=== PATIENT | male | born 1970 | race Caucasian/White ===

== ENCOUNTER 2022-10-29 15:14 | Emergency (ER) | payer OTHER, SELFPAY ==
[2022-10-29 15:31] VITALS: BP 133/79; PULSE 95; RESP 16; TEMP 36.5; O2SAT 96; BMI 28.6
--- NOTE | 2022-10-29 15:43 | CRLHL7_ITS ---
For Patients: As a result of the Century Cures Act, medical imaging exams and procedure reports are released immediately into your electronic medical record. You may view this report before your referring provider. If you have questions, please contact your health care provider. INDICATION: Left-sided abdomen and back pain, suspected kidney stone. TECHNIQUE: CT abdomen and pelvis without contrast. COMPARISON: None. FINDINGS: Lower chest: Unremarkable. Liver: Normal in size and attenuation. No suspicious masses. Gallbladder and bile ducts: No stones or inflammation. No biliary dilatation. Pancreas: Unremarkable. No mass or inflammation. Spleen: Normal in size. No masses. Adrenal glands: Normal in size. No nodules. Kidneys: Relatively large 9 x 7 mm stone at the left ureteropelvic junction causing moderate hydronephrosis. A 2nd smaller stones in the left kidney. No right-sided stones. GI tract: Unremarkable. Normal in caliber. No sign of mass or inflammation. Normal appendix. Vasculature: Abdominal aorta is normal in caliber. Lymph nodes: No lymphadenopathy. Peritoneum/Abdominal Wall: Unremarkable. No sign of mass or infiltration. No free air or significant free fluid. Pelvis: Unremarkable. No pelvic masses. 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 IMPRESSION: Large 9 x 7 mm stone at the left UPJ causing moderate hydronephrosis. Please note that all CT scans at this facility use dose modulation, iterative reconstruction, and/or weight-based dosing when appropriate to reduce radiation dose to as low as reasonably achievable. Dictated by James Freed MD @ 10/29/2022 5:11:55 PM (Electronically Signed)
[2022-10-29 15:57] LABS: Appearance Urine Slightly Cloudy (Clear); Bilirubin Urine Negative (Negative); Blood Urine 2+ (Negative); Color Urine Yellow (Yellow); Glucose Urine Negative (Negative); Ketones Urine 1+ (Negative); Leukocyte Esterase Urine 1+ (Negative); Nitrite Urine Negative (Negative); Protein Urine Negative (Negative); Specific Gravity Urine 1.015 (1.000-1.030); Urobilinogen Urine 0.2 (0.2-1.0)
[2022-10-29 16:01] LABS: Basophils Absolute Auto 0.02 K/uL (0.00-0.30); Basophils Percent Auto 0.3 % (0.0-3.0); Eosinophils Absolute Auto 0.02 K/uL (0.00-0.50); Eosinophils Percent Auto 0.3 % (0.0-7.0); Hematocrit 43.1 % (37.0-53.0); Hemoglobin* 15.2 gm/dL (13.5-17.5); Immature Granulocytes Abs Auto 0.02 K/uL (0.00-0.30); Immature Granulocytes Pct Auto 0.3 %; Lymphocytes Percent Auto 16.8 % (20-44); Mean Corpuscular HGB Conc 35 gm/dL (32-36); Mean Corpuscular Hemoglobin 31 pg (26-34); Mean Corpuscular Volume 88 fL (80-100); Monocytes Percent Auto 4.7 % (0.0-11.0); Neutrophils Percent Auto 77.6 % (42.0-72.0); Platelet Count* 193 K/uL (140-440); RDW Coefficient of Variation % 11.9 % (11.5-15.5); Red Blood Count 4.88 m/uL (4.30-5.90); White Blood Count* 7.51 K/uL (4.50-11.00)
[2022-10-29] MEDS: 0.9 % SODIUM CHLORIDE 1000 ml 1,000 ML IV (16:03)
[2022-10-29] MEDS: KETOROLAC 30 MG/ML inj IVP (16:03)
[2022-10-29 16:08] LABS: Slide Review Reflex No
[2022-10-29 16:10] LABS: Bacteria Urine Few; Squamous Epithelial Cell Urine Few (None-Few)
[2022-10-29 16:13] LABS: Albumin* 4.2 g/dL (3.3-5.0)
[2022-10-29 16:14] LABS: Chloride* 107 mmol/L (96-114); Sodium* 139 mmol/L (135-149)
--- NOTE | 2022-10-29 16:14 | ED.ABDPAIN ---
HPI - Abdominal Pain General Date Seen: 10/29/22 <Antonio Ray MD - Last Filed: 11/05/22 16:34> Chief Complaint: Abdominal Pain <Antonio Ray MD - Last Filed: 11/05/22 16:34> Stated Complaint: pain in lower back and lower abs <Antonio Ray MD - Last Filed: 11/05/22 16:34> Time Seen by Provider: 10/29/22 15:35 <Antonio Ray MD - Last Filed: 11/05/22 16:34> Source: patient <Antonio Ray MD - Last Filed: 11/05/22 16:34> Mode of arrival: ambulatory <Antonio Ray MD - Last Filed: 11/05/22 16:34> Limitations: no limitations <Antonio Ray MD - Last Filed: 11/05/22 16:34> History of Present Illness HPI narrative: Patient is a 52-year-old gentleman who presents here with a 1 day history of left-sided back pain, with radiation to his left groin. He says this feels like a previous kidney stone he has had, he is not taking any medications for this, he did notice however last week that his urine was dark, he has been trying to drink a lot a water, denies any fevers chills or sweats, there is no dysuria frequency he says the pain is not that bad. Definitely does not double him over making move around. Denies any nausea vomiting associated with this cough cold-like symptoms chest pain shortness of breath or headaches. He is on no chronic medications he has no known allergies. No previous abdominal surgeries. 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 <Antonio Ray MD - Last Filed: 11/05/22 16:34> MD elicited complaint: abdominal pain and flank pain <Antonio Ray MD - Last Filed: 11/05/22 16:34> Pertinent past history: kidney stones <Antonio Ray MD - Last Filed: 11/05/22 16:34> Onset (ago): day(s) <Antonio Ray MD - Last Filed: 11/05/22 16:34> Pain Consistency: constant and intermittent <Antonio Ray MD - Last Filed: 11/05/22 16:34> Location: LLQ and L flank <Antonio Ray MD - Last Filed: 11/05/22 16:34> Quality: stabbing <Antonio Ray MD - Last Filed: 11/05/22 16:34> Radiation: LLQ <Antonio Ray MD - Last Filed: 11/05/22 16:34> Migration to: no migration <Antonio Ray MD - Last Filed: 11/05/22 16:34> Exacerbating factors: nothing <Antonio Ray MD - Last Filed: 11/05/22 16:34> Relieving factors: nothing <Antonio Ray MD - Last Filed: 11/05/22 16:34> Associated symptoms: denies other symptoms <Antonio Ray MD - Last Filed: 11/05/22 16:34> Related Data Home Medications: Previous Rx's Medication Instructions Recorded ketorolac 10 mg tablet 10 mg PO Q6H PRN pain 5 days #20 10/29/22 tabs <Antonio Ray MD - Last Filed: 11/05/22 16:34> Allergies/Adverse Reactions: Allergies Allergy/AdvReac Type Severity Reaction Status Date / Time No Known Drug Allergies Allergy Verified 10/30/22 09:17 <Antonio Ray MD - Last Filed: 11/05/22 16:34> Review of Systems Status of ROS Reports: 10 or more systems reviewed and unremarkable except as noted in History and below <Antonio Ray MD - Last Filed: 11/05/22 16:34> PFSH PFSH Social History: Social History Smoking Status: Never smoker <Antonio Ray MD - Last Filed: 11/05/22 16:34> Exam Narrative: Exam Narrative: Patient is speaking normally,no problem with slurring words, oriented x3. Head eyes ears nose and throat exam show equal pupils, no scleral icterus, extraocular muscles are normal, no facial droop, speech is normal, trachea normal and midline. Thyroid normal midline palpable not enlarged. Chest shows symmetrical rise bilaterally, normal auscultation with no wheezes, no increased work of breathing, no overt bruising or lesions seen, no tenderness is noted on auscultation. Heart sounds normal with no S3-S4 no murmurs clicks or gallops. Abdomen shows no obvious masses or hepatosplenomegaly, no organomegaly, bowel sounds are normal in all quadrants. No tenderness is noted also in all quadrants. Upper and lower extremities show normal power, normal range of motion, pulses are normal, sensations normal, fine motor movements are normal, pelvis is stable to rocking. Cervical spine shows normal range of motion, and palpably not tender. Thoracic spine shows normal range of motion, and palpably not tender, lumbar spine shows no tenderness to palpation percussion and is otherwise normal range of motion. Skin shows no rashes, petechiae or eccymosis. <Antonio Ray MD - Last Filed: 11/05/22 16:34> Const: Vital Signs, click to edit/add: Vital Signs - 24 hr 10/29/22 15:31 Temperature 97.7 F Pulse Rate [Pulse Oximeter] 95 Respiratory Rate 16 Blood Pressure [Ri ght Upper Arm] 133/79 Pulse Oximetry 96 Oxygen Delivery Me thod Room Air <Antonio Ray MD - Last Filed: 11/05/22 16:34> Vital Signs, click to edit/add: Vital Signs - 24 hr 10/29/22 15:31 Temperature 97.7 F Pulse Rate [Pulse Oximeter] 95 Respiratory Rate 16 Blood Pressure [Ri ght Upper Arm] 133/79 Pulse Oximetry 96 Oxygen Delivery Me thod Room Air <Saundra Sanchez MD - Last Filed: 10/29/22 18:21> Documenting provider has reviewed patient's vital signs: yes <Antonio Ray MD - Last Filed: 11/05/22 16:34> Course Course Hospital Course: During this evaluation of this patient I considered multiple differential diagnosis is which included the life-threatening such as appendicitis, aortic aneurysm, mesenteric ischemia, bowel perforation, volvulus, and bowel obstruction. Other differential diagnosis is include but are not limited to cholecystitis, pancreatitis, hepatitis, gastritis, GERD, diverticulitis, peptic ulcer disease, pyelonephritis/UTI, renal colic/stone, testicular torsion as well as other acute scrotal processes, inflammatory bowel disease, as well as other etiologies Discussed with the patient that his symptoms are consistent with a kidney stone but other possibilities have to be considered, given this fact, he is in agreement with CT, laboratory blood test, urinalysis, IV fluids and Toradol. I will sign him over to the oncoming emergency room physician for further review of the laboratory test, and final disposition. <Antonio Ray MD - Last Filed: 11/05/22 16:34> Reevaluation(s) Reevaluation #1: Reviewed with patient his CT results, he has a large stone which is 9 x 7 mm in the left UPJ causing hydronephrosis. His pain is better right now. We discussed that this stone is very unlikely to pass on its own. He has not seen urology for over 20 years, was down in [place]. Will contact urology in the [facility] and see if we can get an appropriate plan in place for him. <Saundra Sanchez MD - Last Filed: 10/29/22 18:21> Time: 17:23 <Saundra Sanchez MD - Last Filed: 10/29/22 18:21> Reevaluation #2: Have reviewed my conversation with urologist. The urologist is agreeing to see patient in follow-up, has no comments as to care for appropriateness for discharge. Have reviewed with Frantz the risks of having obstructing kidney stone, specifically risk for infection, risk for kidney damage that may or may not resolve. [facility] currently has no beds available, do think he is safe for discharge for home given that we do have a urologist that is agreeable to see him in follow-up in knows that he has a 9 x 7 mm stone. <Saudnra Sanchez MD - Last Filed: 10/29/22 18:21> Time: 18:03 <Suandra Sanchez MD - Last Filed: 10/29/22 18:21> Consultations Consultation #1: Paged urology on-call for [facility], spoke with Dr. Monte. Explained that I just need an outpatient followup plan for this patient with an obstructing 9 x7mm left kidney stone with normal renal function currently and no evidence of infection. He is clear that he is not commenting on patient's current status, I am clear that I do not need that from him, only outpatient follow up. Reviewed with him that I will be certainly counseling patient on the risks of obstructing stone. I do think that this patient in his current state can be managed outpatient. <Saundra Sanchez MD - Last Filed: 10/29/22 18:21> Time: 17:48 <Saundra Sanchez MD - Last Filed: 10/29/22 18:21> Vital Signs Vital signs: Initial Vital Signs Temperature 97.7 F 10/29/22 15:31 Temperature Source Temporal Artery Scan 10/29/22 15:31 Pulse Rate 95 10/29/22 15:31 Respiratory Rate 16 10/29/22 15:31 Blood Pressure 133/79 10/29/22 15:31 Blood Pressure Mean 97 10/29/22 15:31 Blood Pressure Position Sitting 10/29/22 15:31 Pulse Oximetry 96 10/29/22 15:31 Oxygen Delivery Method Room Air 10/29/22 15:31 Vital Signs Temperature 97.7 F 10/29/22 15:31 Pulse Rate 95 10/29/22 15:31 Respiratory Rate 16 10/29/22 15:31 Blood Pressure 133/79 10/29/22 15:31 Pulse Oximetry 96 10/29/22 15:31 Oxygen Delivery Method Room Air 10/29/22 15:31 Temperature 97.7 F 10/29/22 15:31 Pulse Rate 95 10/29/22 15:31 Respiratory Rate 16 10/29/22 15:31 Blood Pressure 133/79 10/29/22 15:31 Pulse Oximetry 96 10/29/22 15:31 Oxygen Delivery Method Room Air 10/29/22 15:31 <Antonio Ray MD - Last Filed: 11/05/22 16:34> Initial Vital Signs Temperature 97.7 F 10/29/22 15:31 Temperature Source Temporal Artery Scan 10/29/22 15:31 Pulse Rate 95 10/29/22 15:31 Respiratory Rate 16 10/29/22 15:31 Blood Pressure 133/79 10/29/22 15:31 Blood Pressure Mean 97 10/29/22 15:31 Blood Pressure Position Sitting 10/29/22 15:31 Pulse Oximetry 96 10/29/22 15:31 Oxygen Delivery Method Room Air 10/29/22 15:31 Vital Signs Temperature 97.7 F 10/29/22 15:31 Pulse Rate 95 10/29/22 15:31 Respiratory Rate 16 10/29/22 15:31 Blood Pressure 133/79 10/29/22 15:31 Pulse Oximetry 96 10/29/22 15:31 Oxygen Delivery Method Room Air 10/29/22 15:31 Temperature 97.7 F 10/29/22 15:31 Pulse Rate 95 10/29/22 15:31 Respiratory Rate 16 10/29/22 15:31 Blood Pressure 133/79 10/29/22 15:31 Pulse Oximetry 96 10/29/22 15:31 Oxygen Delivery Method Room Air 10/29/22 15:31 <Saundra Sanchez MD - Last Filed: 10/29/22 18:21> MDM - Abdominal Pain Lab Data Attestation: I reviewed the patient's lab results. <Saundra Sanchez MD - Last Filed: 10/29/22 18:21> Labs: Lab Results 10/29/22 10/29/22 Range/Units 15:28 15:55 WBC 7.51 (4.50-11.00) K/uL RBC 4.88 (4.30-5.90) m/uL Hgb 15.2 (13.5-17.5) gm/dL Hct 43.1 (37.0-53.0) % MCV 88 (80-100) fL MCH 31 (26-34) pg MCHC 35 (32-36) gm/dL RDW Coeff of Tawanda 11.9 (11.5-15.5) % Plt Count 193 (140-440) K/uL Neut % (Auto) 77.6 H (42.0-72.0) % Lymph % (Auto) 16.8 L (20-44) % [place] % (Auto) 4.7 (0.0-11.0) % Eos % (Auto) 0.3 (0.0-7.0) % Baso % (Auto) 0.3 (0.0-3.0) % Neut # (Auto) 5.80 (1.7-7.0) K/uL Lymph # (Auto) 1.30 (0.90-2.90) K/uL Sevier # (Auto) 0.40 (0.00-0.90) K/UL Eos # (Auto) 0.02 (0.00-0.50) K/uL Baso # (Auto) 0.02 (0.00-0.30) K/uL Sodium 139 (135-149) mmol/L Potassium 3.7 (3.6-5.1) mmol/L Chloride 107 (96-114) mmol/L Carbon Dioxide 26 (20-32) mmol/L BUN 20 (7-30) mg/dL Creatinine 1.0 (0.5-1.5) mg/dL Estimated Creat Clear 108.50 Estimated GFR 92 ml/min Glucose 200 H (60-115) mg/dL Calcium 9.5 (8.4-10.6) mg/dL Total Bilirubin 0.9 (0.1-1.5) mg/dL Direct Bilirubin 0.3 (0.0-0.5) mg/dL AST 38 H (12-35) U/L ALT 40 (4-50) U/L Alkaline Phosphatase 53 (40-150) U/L Total Protein 6.8 (6.0-8.3) g/dL Albumin 4.2 (3.3-5.0) g/dL Amylase 85 (18-89) U/L Lipase 57 (23-300) U/L Urine Color Yellow (Yellow) Urine Appearance Slightly Cloudy A (Clear) Urine pH 5.0 (5.0-8.5) Ur Specific [place] 1.015 (1.000-1.030) Urine Protein Negative (Negative) Urine Glucose (UA) Negative (Negative) Urine Ketones 1+ A (Negative) Urine Blood 2+ A (Negative) Urine Nitrite Negative (Negative) Urine Bilirubin Negative (Negative) Urine Urobilinogen 0.2 (0.2-1.0) Ur Leukocyte Esterase 1+ A (Negative) Urine RBC 2-5 A (0-2) Urine WBC 2-5 (0-5) Ur Squamous Epith Cells Few (None-Few) Urine Bacteria Few A (None) <Antonio Ray MD - Last Filed: 11/05/22 16:34> Lab Results 10/29/22 10/29/22 Range/Units 15:28 15:55 WBC 7.51 (4.50-11.00) K/uL RBC 4.88 (4.30-5.90) m/uL Hgb 15.2 (13.5-17.5) gm/dL Hct 43.1 (37.0-53.0) % MCV 88 (80-100) fL MCH 31 (26-34) pg MCHC 35 (32-36) gm/dL RDW Coeff of Tawanda 11.9 (11.5-15.5) % Plt Count 193 (140-440) K/uL Neut % (Auto) 77.6 H (42.0-72.0) % Lymph % (Auto) 16.8 L (20-44) % Sevier % (Auto) 4.7 (0.0-11.0) % Eos % (Auto) 0.3 (0.0-7.0) % Baso % (Auto) 0.3 (0.0-3.0) % Neut # (Auto) 5.80 (1.7-7.0) K/uL Lymph # (Auto) 1.30 (0.90-2.90) K/uL Sevier # (Auto) 0.40 (0.00-0.90) K/UL Eos # (Auto) 0.02 (0.00-0.50) K/uL Baso # (Auto) 0.02 (0.00-0.30) K/uL Sodium 139 (135-149) mmol/L Potassium 3.7 (3.6-5.1) mmol/L Chloride 107 (96-114) mmol/L Carbon Dioxide 26 (20-32) mmol/L BUN 20 (7-30) mg/dL Creatinine 1.0 (0.5-1.5) mg/dL Estimated Creat Clear 108.50 Estimated GFR 92 ml/min Glucose 200 H (60-115) mg/dL Calcium 9.5 (8.4-10.6) mg/dL Total Bilirubin 0.9 (0.1-1.5) mg/dL Direct Bilirubin 0.3 (0.0-0.5) mg/dL AST 38 H (12-35) U/L ALT 40 (4-50) U/L Alkaline Phosphatase 53 (40-150) U/L Total Protein 6.8 (6.0-8.3) g/dL Albumin 4.2 (3.3-5.0) g/dL Amylase 85 (18-89) U/L Lipase 57 (23-300) U/L Urine Color Yellow (Yellow) Urine Appearance Slightly Cloudy A (Clear) Urine pH 5.0 (5.0-8.5) Ur Specific [place] 1.015 (1.000-1.030) Urine Protein Negative (Negative) Urine Glucose (UA) Negative (Negative) Urine Ketones 1+ A (Negative) Urine Blood 2+ A (Negative) Urine Nitrite Negative (Negative) Urine Bilirubin Negative (Negative) Urine Urobilinogen 0.2 (0.2-1.0) Ur Leukocyte Esterase 1+ A (Negative) Urine RBC 2-5 A (0-2) Urine WBC 2-5 (0-5) Ur Squamous Epith Cells Few (None-Few) Urine Bacteria Few A (None) <Saundra Sanchez MD - Last Filed: 10/29/22 18:21> Imaging Data CT scan - abdomen: Attestation: I have reviewed the pertinent imaging results. <Saundra Sanchez MD - Last Filed: 10/29/22 18:21> Radiologist's impression: Patient: FRANTZ QUAN Facility:?[facility] Patient ID:?[id number] Site Patient ID:?[id number]. Site :?[id number] Study:?CT Abdomen/Pelvis WITHOUT-10/29/2022 4:28:50 PM Ordering Physician:Wally Alvarez Final Report: INDICATION: Left-sided abdomen and back pain, suspected kidney stone. TECHNIQUE: CT abdomen and pelvis without contrast. COMPARISON: None. FINDINGS: Lower chest: Unremarkable. Liver: Normal in size and attenuation. No suspicious masses. Gallbladder and bile ducts: No stones or inflammation. No biliary dilatation. Pancreas: Unremarkable. No mass or inflammation. Spleen: Normal in size. No masses. Adrenal glands: Normal in size. No nodules. Kidneys: Relatively large 9 x 7 mm stone at the left ureteropelvic junction causing moderate hydronephrosis. A 2nd smaller stones in the left kidney. No right-sided stones. GI tract: Unremarkable. Normal in caliber. No sign of mass or inflammation. Normal appendix. Vasculature: Abdominal aorta is normal in caliber. Lymph nodes: No lymphadenopathy. Peritoneum/Abdominal Wall: Unremarkable. No sign of mass or infiltration. No free air or significant free fluid. Pelvis: Unremarkable. No pelvic masses. 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 IMPRESSION: Large 9 x 7 mm stone at the left UPJ causing moderate hydronephrosis. Please note that all CT scans at this facility use dose modulation, iterative reconstruction, and/or weight-based dosing when appropriate to reduce radiation dose to as low as reasonably achievable. Dictated by James Freed MD @ 10/29/2022 5:11:55 PM (Electronic Signature) <Saundra Sanchez MD - Last Filed: 10/29/22 18:21> Critical Care Time Critical Care Time Critical Care Time: No <Saundra Sanchez MD - Last Filed: 10/29/22 18:21> Discharge Plan Discharge Clinical Impression: Renal colic on left side, Hydronephrosis <Antonio Ray MD - Last Filed: 11/05/22 16:34> Patient Disposition: Home, Self-Care <Antonio Ray MD - Last Filed: 11/05/22 16:34> Condition: Stable <Antonio Ray MD - Last Filed: 11/05/22 16:34> Instructions: Kidney Stones (ED), Renal Colic (ED) <Antonio Ray MD - Last Filed: 11/05/22 16:34> Additional Instructions: [facility] [phone], as he stated that he would be willing to see you in follow up to address your 9 by 7mm kidney stone. Can use Tylenol 1000mg 3x/day and the toradol per prescription for pain. If you are not in to see him within a week, do need to have your kidney functions rechecked in clinic, please make an appointment if needed. Otherwise, if your pain is uncontrolled, develop fever/vomiting, need to emergently evaluated. <Antonio Ray MD - Last Filed: 11/05/22 16:34> Activity Level: Activity as Tolerated <Antonio Ray MD - Last Filed: 11/05/22 16:34> Activity as Tolerated <Saundra Sanchez MD - Last Filed: 10/29/22 18:21> Discharge Diet: Regular <Antonio Ray MD - Last Filed: 11/05/22 16:34> Regular <Saundra Sanchez MD - Last Filed: 10/29/22 18:21> Prescriptions: New ketorolac 10 mg tablet 10 mg PO Q6H PRN (Reason: pain) 5 Days Qty: 20 0RF <Antonio Ray MD - Last Filed: 11/05/22 16:34> Follow Up/Referrals: Provider,Not a Local [Primary Care Provider] - <Antonio Ray MD - Last Filed: 11/05/22 16:34> Stand Alone Forms: MyHealth Info Instructions <Antonio Ray MD - Last Filed: 11/05/22 16:34>
[2022-10-29 16:15] LABS: Potassium* 3.7 mmol/L (3.6-5.1)
[2022-10-29 16:16] LABS: Alkaline Phosphatase* 53 U/L (40-150); Aspartate Amino Transferase* 38 U/L (12-35); Bilirubin Direct* 0.3 mg/dL (0.0-0.5); Bilirubin Total* 0.9 mg/dL (0.1-1.5); Total Protein* 6.8 g/dL (6.0-8.3)
[2022-10-29 16:17] LABS: Alanine Aminotransferase* 40 U/L (4-50); Amylase* 85 U/L (18-89); Estimated Glomerular Filt Rate 92 ml/min; Lipase* 57 U/L (23-300)
[2022-10-29 16:18] LABS: Blood Urea Nitrogen* 20 mg/dL (7-30); Calcium* 9.5 mg/dL (8.4-10.6); Carbon Dioxide* 26 mmol/L (20-32); Glucose* 200 mg/dL (60-115)
== END 2022-10-29 18:23 | disposition home or self-care (01) ==
PROVIDERS: Emergency Provider Family Medicine
DX: N23 Unspecified renal colic (principal); N13.30 Unspecified hydronephrosis
CPT/HCPCS: 36415; 74176; 80048; 80076; 81001; 82150; 83690; 85025; 87086; 96361; 96374; 99284; J1885; J7030

== ENCOUNTER 2024-10-27 10:23 | Outpatient (CLI) | payer OTHER, SELFPAY | END 2024-10-27 10:24 | disposition home or self-care (01) | PROVIDERS: Visit Provider Registered Nurse | DX: R10.13 Epigastric pain (principal) | CPT/HCPCS: 80053; 83690 ==

== ENCOUNTER 2025-01-24 09:09 | Emergency (ER) | payer OTHER, SELFPAY ==
--- OUTSIDE RECORDS SUMMARY | 2025-01-24 09:12 | XMS_ITS | Clinical Summary ---
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 Immunizations Immunization Administration Dates Next Due TDAP (Adacel,Boostrix) 12/16/2020 Family History Medical History Relation Comments Glaucoma No family hx of Macular Degeneration No family hx of Social History Tobacco Use Types Packs/Day Years Used Date Smoking Tobacco: Never Smokeless Tobacco: Never Adolescent Education Answer Date Record ed Getting School Help Needed Not on file 04/04 Sex and Gender Information Value Date Recorded Sex Assigned at Male 12/16/2020 5:01 PM CDT 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[employer] Gender Identity Male 12/16/2020 5:01 PM CDT Sexual Orientation Something else 12/16/2020 5: 01 PM CDT Sexual Orientation Straight 12/16/2020 5: 01 PM CDT Last Filed Vital Signs Vital Sign Reading Time Taken Comments Blood Pressure 149/89 12/16/2020 6:32 PM CDT Pulse 72 12/16/2020 6:32 PM CDT Temperature 36.3 C (97.4 F) 12/16/2020 6:32 PM CDT Respiratory Rate 18 12/16/2020 6:32 PM CDT Oxygen Saturation 99% 12/16/2020 6:32 PM CDT Inhaled Oxygen Concentration - - Weight - - Height - - Body Mass Index - - Plan of Treatment Not on file Care Teams Machine Joint Cutter Relationship Specialty Start Date End Date No Ref-Primary, Physician PCP - General 07/23/18
--- OUTSIDE RECORDS SUMMARY | 2025-01-24 09:12 | XMS_ITS | Clinical Summary ---
Author Organization [facility] Address [address] [place] [id number] Care Team Providers Care [employer] Certified Network Professional Name Role Phone Pcp, No Primary Care Provider Unavailabl e Allergies No known active allergies Medications ibuprofen (ADVIL; MOTRIN) 200 mg tablet Take 600 mg by mouth every 6 hours if needed. Active ketorolac (TORADOL) 10 mg tablet Take 1 Tablet by mouth every 6 hours if needed. 3 Active tamsulosin (FLOMAX) 0.4 mg capsule TAKE 1 CAPSULE(0.4 MG) BY MOUTH DAILY 3 Active HYDROcodone-ac etaminophen (NORCO) 5-325 mg per tabletIndicati ons:Kidney stone Take 1 Tablet by mouth every 6 hours if needed for Pain. Max acetaminophen dose: 4000 mg in 24 hrs. 12 Tablet 3 Active Social History Tobacco Use Types Packs/Day Years Used Date Smoking Tobacco: Never Assessed Sex and Gender Information Value Date Recorded Sex Assigned at Not on file Legal Sex Male 11:58 AM CDT Gender Identity Not on file Sexual Orientation Not on file Obstetrics History Last Filed Vital Signs Vital Sign Reading Time Taken Comments Blood Pressure 116/72 11/13/2022 12:30 PM CDT Pulse 67 11/13/2022 12:30 PM CDT Temperature 36.4 C (97.6 F) 11/13/2022 11:45 AM CDT Respiratory Rate 16 11/13/2022 12:3 0 PM CDT Oxygen Saturation 94% 11/13/2022 12: 30 PM CDT Inhaled Oxygen Concentration - - Weight 107.8 kg (237 lb 11.2 oz) 11/13/2022 9:14 AM CDT Height 193 cm (6' 4) 11/08/2022 9:58 AM CDT Body Mass Index 28.93 11/08/2022 9:58 AM CDT Plan of Treatment Health Maintenance Due Date Last Done Comments Tetanus booster 1983 Depression screening for age 12+ 1984 HIV for age 15-65 1987 BMI (ht and wt on same day) for age 18+ 1990 Hepatitis C screening for age 18-79 1990 Hepatitis B series for 19+ (1 of 3 - 19+ 3-dose series ) 1991 Colonoscopy through age 75 2017 Lipids for age 45-75 2017 Pneumococcal series for age 50+ (1 of 1 - PCV) 023 Zoster (shingles) series for age 50+ (1 of 2) 08/08/19 23 COVID-19 vaccine series ( - season) 4 Influenza Vaccine (#1) 2025 Medical Devices Implanted Type Area Grinder And Honer Operator Automatic Device Identifier Shelf Expiration Date Model / Serial / Lot Stent Uret [id number] Contour - [id number] Implanted:Qty: 1 on 11/13/2022 by Quique Atwood MD at [facility] Left: [facility]ter [facility] 06/16/2025 [id number] / / [id number] Advance Directives * Full Code (Latest Code Status on File) Date Activated Date Inactivated Comments 11/13/2022 6:15 AM 11/13/2022 3:12 PM Question Answer Comments Code Status Discussion: Unable to Assess Preferences, Provider to review later Care Teams [employer] Certified Network Professional Relationship Specialty Start Date End Date Pcp, No . PCP - General 07/20/24
[2025-01-24 09:18] VITALS: BP 137/76; PULSE 94; RESP 18; TEMP 37.1; O2SAT 97; BMI 28.6
--- NOTE | 2025-01-24 10:14 | CRLHL7_ITS ---
For Patients: As a result of the Century Cures Act, medical imaging exams and procedure reports are released immediately into your electronic medical record. You may view this report before your referring provider. If you have questions, please contact your health care provider. Indication: Left-sided facial swelling and jaw swelling Technique: Volumetric multidetector CT images of the cervical soft tissues were obtained after the administration of low osmolar intravenous contrast. 116 cc Isovue 370 low osmolar intravenous contrast Comparison: None available. Findings: The partially visualized brain parenchyma is normal in attenuation without evidence of abnormal enhancement. The orbits and their contents are within normal limits. There is scattered chronic mucosal thickening throughout the paranasal sinuses. The mastoid air cells are clear. The nasopharynx is unremarkable. The fossae of Rosenmuller are clear. The oropharynx is unremarkable. The hypopharynx is clear. There is demonstration of moderate left perimandibular and submandibular soft tissue swelling with demonstration of a subtle rim enhancing fluid collection along the medial mandibular cortex seen best on series 3, image 40 and series 4, image 23 measuring 1.2 x 0.5 x 1.1 centimeters in AP, transverse and craniocaudal dimensions respectively there is likely associated apical lucency of the adjacent mandibular molar. The vocal folds are nonthickened with symmetrical appearance. The thyroid gland is normal in attenuation. There are enlarged, reactive submandibular and jugulodigastric lymph nodes. The jugular veins are patent. The carotid arteries demonstrate no significant atherosclerotic narrowing. The lung apices are clear. The cervical vertebral body heights are grossly maintained with minimal endplate Schmorl`s defects. There is no significant spondylolisthesis or displaced fracture. Impression: 1. Demonstration of a subtle left perimandibular fluid collection along the medial mandibular cortex measuring up to 1.2 x 1.1 centimeters with an associated apical root lucency of an adjacent left mandibular molar likely representing developing abscess secondary to periodontal disease. There is minimal left perimandibular and submandibular soft tissue swelling with reactive lymph nodes. Please note that all CT scans at this facility use dose modulation, iterative reconstruction, and/or weight-based dosing when appropriate to reduce radiation dose to as low as reasonably achievable. Dictated by Daniel Sage MD @ 01/24/2025 10:53:44 AM (Electronically Signed)
--- NOTE | 2025-01-24 10:17 | ED.GENADULT ---
HPI - General Adult General Date Seen: 01/24/25 Chief complaint: Ear/Nose/Throat Problem Stated complaint: swelling on left side of neck Time Seen by Provider: 01/24/25 10:06 Source: patient Mode of arrival: ambulatory Limitations: no limitations History of Present Illness HPI narrative: Patient is a 54-year-old male presenting to the emergency department for swelling to left side of his face. Swelling is mostly to the left jaw. Denies any pain with it but does states his jaw feels tight and has some difficulty fully opening his mouth due to the tightness. Again states though there is no pain when he opens his mouth. Chewing though does eventually cause some soreness to the left side of his jaw. Denies any pain with swallowing. But does feel like it is difficult to swallow sometimes. Denies any difficulty breathing. Denies fevers, chills, chest pain, shortness of breath, headache, vision changes. Did have a rash on his back over the weekend they treated with Benadryl. States he was itchy but denies any pain with it. Woke up this morning with left earache that has since improved. His is concerned about Lyme disease due to the rash and swelling. He is in the lind frequently he states. Related Data Home Medications ?Medication ?Instructions ?Recorded ?Confirmed omeprazole 10 mg capsule,delayed 10 mg PO ONCE PRN 12/01/24 01/24/25 release Previous Rx's ?Medication ?Instructions ?Recorded peg 3350-electrolytes 236 4,000 ml PO DIRECTED PRN 12/01/24 gram-22.74 gram-6.74 gram-5.86 colonoscopy #1 mL gram solution (Golytely) Allergies Allergy/AdvReac Type Severity Reaction Status Date / Time No Known Drug Allergies Allergy Verified 01/24/25 10:39 Review of Systems Status of ROS: Reports: 10 or more systems reviewed and unremarkable except as noted in History and below [facility] Medical History History of kidney stones ?Z87.442 - Personal history of urinary calculi (ICD-10) Surgical History History of lithotripsy (11/13/22) ?Z98.890 - Other specified postprocedural states (ICD-10) Family History Father Cardiac arrhythmia Social History What is your current living situation?: I presently have a place to live Problems where you live: no known problems In the past 12 months, utilities in danger of being shut off: no In past 12 months, lack of transportation kept you from medical appts, meetings, work, or getting things needed for daily living: no In the past 12 mos, have been you worried that your food would run out before you had money to buy more?: never true In the past 12 mos, the food you bought just didn't last and you didn't have money to buy more?: never true Smoking Status: Never smoker How often do you have a drink containing alcohol: never AUDIT-C Alcohol total score: 0 Non-prescribed substance use: marijuana (any form) Non-prescribed substance use details: some day thc use Caffeine: Yes How often does anyone, including family, friends and others, physically hurt you: never How often does anyone, including family, friends and others, insult or talk down to you: never How often does anyone, including family, friends and others, threaten you with harm: never How often does anyone, including family, friends and others, scream or curse at you: never Exam Narrative: Exam Narrative: Const: Well-nourished, Well-developed, in mild distress Eyes: PERRL, no conjunctival injection, and symmetrical lids HENT: Swelling noted to his left jaw. No clear signs of salivary stones. No swelling noted underneath the tongue. Good dentition. Uvula midline, no tonsillar exudate or swelling. There is some tenderness to the area of swelling. Tympanic membranes and external auditory canals normal bilaterally. Neck: Symmetric, trachea midline, No thyromegaly. CVS: RRR, No murmurs or gallops. Peripheral pulses 2+ and equal in all extremities RESP: Unlabored respiratory effort. Clear to auscultation bilaterally. GI: Nontender/Nondistended, No rebound or guarding. MSK:Extremities w/o deformity, Normal Active ROM Skin: Warm, Dry. Lesions on his back in about a 10 cm x 10 cm area with about 7 or 8 lesions that appear to be drying up Neuro: Normal Muscle tone, No focal neurological deficits. Psych: Awake, Alert, & Oriented x3. Appropriate mood and affect. Const: Vital Signs, click to edit/add: Vital Signs - 24 hr 01/24/25 09:18 Temperature 98.8 F Pulse Rate [Pulse Oximeter] 94 Respiratory Rate 18 Blood Pressure [Ri ght Upper Arm] 137/76 Pulse Oximetry 97 Oxygen Delivery Me thod Room Air Course Vital Signs Vital signs: Initial Vital Signs Temperature 98.8 F 01/24/25 09:18 Temperature Source Temporal Artery Scan 01/24/25 09:18 Pulse Rate 94 01/24/25 09:18 Pulse Rhythm Regular 01/24/25 09:18 Respiratory Rate 18 01/24/25 09:18 Blood Pressure 137/76 01/24/25 09:18 Blood Pressure Mean 96 01/24/25 09:18 Blood Pressure Position Sitting 01/24/25 09:18 Pulse Oximetry 97 01/24/25 09:18 Oxygen Delivery Method Room Air 01/24/25 09:18 Vital Signs Temperature 98.8 F 01/24/25 09:18 Pulse Rate 94 01/24/25 09:18 Respiratory Rate 18 01/24/25 09:18 Blood Pressure 137/76 01/24/25 09:18 Pulse Oximetry 97 01/24/25 09:18 Oxygen Delivery Method Room Air 01/24/25 09:18 Temperature 98.8 F 01/24/25 09:18 Pulse Rate 94 01/24/25 09:18 Respiratory Rate 18 01/24/25 09:18 Blood Pressure 137/76 01/24/25 09:18 Pulse Oximetry 97 01/24/25 09:18 Oxygen Delivery Method Room Air 01/24/25 09:18 Medical Decision Making MDM Narrative Medical decision making narrative: Patient is a 54-year-old male presenting for jaw pain. His area of swelling did consider salvage other stone. I do not see any obvious ones on my exam. Call so be a swollen lymph node. Seems little bit low for parotiditis but still could be. No signs of Nick angina, peritonsillar abscess or other deep neck space abscesses. He does have some difficulty swallowing but states mostly due to the trismus and not any actual pain. Andressa is also does seems related to the swelling making his jaw feel tight. Will do a CT scan for better evaluation. The rash is back does appear somewhat like shingles but it is a large area that I would have expected and it was not painful at all. Ears look normal at this time. I informed patient that this is unlikely to be Lyme disease but he would like to be tested. CT scan returned showing a 1.2 x 1.1 cm apical root lucency likely related to a peridontal abscess. Overall he is doing well. Will discharge him home on Augmentin via instymeds as I do not believe this abscess is amendable to I and D. I informed him follow-up with his dentist. He is agreeable to this plan. Imaging Data Soft tissue neck CT: Attestation: I have reviewed the pertinent imaging results. Radiologist's impression: 1. Demonstration of a subtle left perimandibular fluid collection along the medial mandibular cortex measuring up to 1.2 x 1.1 centimeters with an associated apical root lucency of an adjacent left mandibular molar likely representing developing abscess secondary to periodontal disease. There is minimal left perimandibular and submandibular soft tissue swelling with reactive lymph nodes. Please note that all CT scans at this facility use dose modulation, iterative reconstruction, and/or weight-based dosing when appropriate to reduce radiation dose to as low as reasonably achievable. Dictated by Daniel Sage MD @ 01/24/2025 10:53:44 AM Discharge Plan Discharge Clinical Impression: Periodontal abscess Patient Disposition: Home, Self-Care Condition: Stable Instructions: Periodontal Disease (DC) Additional Instructions: Take the antibiotics as directed. Call your dentist today to schedule a follow-up appointment. Return to emergency department for new or worsening symptoms Prescriptions: No Action omeprazole 10 mg capsule,delayed release(DR/EC) 10 mg PO ONCE PRN peg 3350-electrolytes [Golytely] 236-22.74-6.74 -5.86 gram recon soln 4,000 ml PO DIRECTED PRN (Reason: colonoscopy) Qty: 1 0RF Rx Instructions: 1 day prior to scopes, between 4 and 6 p.m., drink 8 oz glass every 15 minutes until half a gallon is gone. 6 hours prior to procedure, drink 8 oz glass every 15 minutes until second half gallon is gone. Follow Up/Referrals: Shannon Peterson, [facility] OUT WA[facility]RESS [Primary Care Provider, Family Practice] Stand Alone Forms: Hologic Info Instructions
[2025-01-26 13:54] LABS: Lyme ELISA Reflex 0.14 IV (<=0.90)
== END 2025-01-24 11:34 | disposition home or self-care (01) ==
LOC: ED 11:31
PROVIDERS: Emergency Provider Student in an Organized Health Care Education/Training Program; PCP Registered Nurse
DX: K05.219 Aggressive periodontitis, localized, unspecified severity (principal)
CPT/HCPCS: 36415; 70491; 86618; 99284; 99285; Q9967